=== PATIENT | male | born 1970 | race Caucasian/White ===

== ENCOUNTER 2023-04-06 11:24 | Emergency (ER) | payer BC ==
[~2023-04-06] VITALS: Ht 172.7 cm; Wt 81.6 kg
[2023-04-06 11:40] VITALS: BP_SYST 135; PULSE 72; RESP 18; TEMP 98; O2SAT 97
[2023-04-06 11:57] LABS: BASOPHILS # (AUTO) 0.1 K/uL (0.0-0.2); EOSINOPHILS # (AUTO) 0.2 K/uL (0.0-0.4); EOSINOPHILS % (AUTO) 2.7 % (0.0-4.0); HEMATOCRIT 49.5 % (36-54); HEMOGLOBIN 16.2 g/dL (14.0-18.0); LYMPHOCYTES # (AUTO) 1.8 K/uL (1.0-5.5); LYMPHOCYTES % (AUTO) 20.4 % (20.5-51.5); MEAN CORPUSCULAR HEMOGLOBIN 29 pg (27-31); MEAN CORPUSCULAR HGB CONC 33 % (32-36); MEAN CORPUSCULAR VOLUME 89 fL (79.0-98.0); MONOCYTES # (AUTO) 0.7 K/uL (0.0-1.0); MONOCYTES % (AUTO) 8.6 % (1.7-9.3); NEUTROPHILS # (AUTO) 5.8 K/uL (1.8-7.7); NEUTROPHILS % (AUTO) 67.3 % (40.0-70.0); PLATELET COUNT (AUTO) 257 K/uL (130-430); RED BLOOD CELL COUNT(AUTO) 5.55 MIL/uL (4.2-6.2); RED CELL DISTRIBUTION WIDTH 14.6 % (9.0-15.0); WHITE BLOOD COUNT (AUTO) 8.6 K/uL (4.8-10.8)
[2023-04-06 12:08] LABS: BILIRUBIN,URINE NEGATIVE (NEGATIVE); BLOOD, URINE 1+ (NEGATIVE); CLARITY/URINE CLEAR (CLEAR); COLOR,URINE YELLOW (YELLOW); GLUCOSE,URINE NEGATIVE (NEGATIVE); KETONES,URINE NEGATIVE (NEGATIVE); LEUKOCYTE ESTERASE ,URINE NEGATIVE (NEGATIVE); NITRITE, URINE NEGATIVE (NEGATIVE); PH,URINE 5.5 (5.0-8.0); PROTEIN URINE NEGATIVE (NEGATIVE); UROBILINOGEN,URINE 0.2 (0.2-1.0)
[2023-04-06 12:17] LABS: ALBUMIN 4.1 g/dL (3.4-4.8); CALCIUM 8.8 mg/dL (8.4-11.0); CREATININE 1.07 mg/dL (0.55-1.30); POTASSIUM 4.5 mmol/L (3.5-5.1); TOTAL PROTEIN, SERUM 7.4 g/dL (6.4-8.3)
[2023-04-06 12:18] LABS: BACTERIA,URINE RARE /HPF (None Seen); RBC,URINE 0-3 /HPF (0-3); WBC,URINE NONE SEEN /HPF (0-3)
[2023-04-06] MEDS ORDERED: IBUP-1971 PO (13:27)
[2023-04-06] MEDS ORDERED: AMOX-423 PO (13:27)
[2023-04-06] MEDS ORDERED: AMOXICILLIN/POTASSIUM CLAV 875 MG TABLET PO ONE (13:45)
[2023-04-06] MEDS ORDERED: IBUPROFEN 800 MG TABLET PO ONE (13:45)
[2023-04-06 14:50] VITALS: BP_SYST 135; PULSE 72; RESP 18; TEMP 98; O2SAT 97
== END 2023-04-06 14:19 | disposition home or self-care (01) ==
LOC: SED 11:24
DX: K57.92 Diverticulitis of intestine, part unspecified, without perforation or abscess without bleeding (principal); R10.31 Right lower quadrant pain; Z79.899 Other long term (current) drug therapy
CPT/HCPCS: 36415; 76376; 80053; 81000; 83605; 85025; 99284

== ENCOUNTER 2023-08-24 21:55 | Emergency (ER) | payer BC ==
[~2023-08-24] VITALS: Ht 170.2 cm; Wt 81.6 kg
[~2023-08-24 21:55] MED LIST: AMOX-423 PO; IBUP-1971 PO
[2023-08-24 22:01] VITALS: BP_SYST 134; PULSE 71; RESP 20; TEMP 97.6; O2SAT 98
[2023-08-25 00:40] LABS: ANION GAP 10 (5-15); CARBON DIOXIDE 29 mmol/L (23-29); CHLORIDE 104 mmol/L (98-107); GFR AFRICAN AMERICAN 114 mL/min (>90); GLUCOSE 112 mg/dL (74-106); POTASSIUM 3.3 mmol/L (3.5-5.1); SODIUM SERUM 143 mmol/L (136-145); UREA NITROGEN, BLOOD 15 mg/dL (8-21)
[2023-08-25 00:45] LABS: BASOPHILS % (AUTO) 0.8 % (0.0-2.0); EOSINOPHILS # (AUTO) 0.3 K/uL (0.0-0.4); EOSINOPHILS % (AUTO) 4.8 % (0.0-4.0); HEMATOCRIT 45.3 % (36-54); HEMOGLOBIN 15.3 g/dL (14.0-18.0); LYMPHOCYTES # (AUTO) 1.9 K/uL (1.0-5.5); LYMPHOCYTES % (AUTO) 29.5 % (20.5-51.5); MEAN CORPUSCULAR HEMOGLOBIN 30 pg (27-31); MEAN CORPUSCULAR HGB CONC 34 % (32-36); MEAN CORPUSCULAR VOLUME 89 fL (79.0-98.0); MONOCYTES # (AUTO) 0.6 K/uL (0.0-1.0); MONOCYTES % (AUTO) 8.9 % (1.7-9.3); NEUTROPHILS # (AUTO) 3.5 K/uL (1.8-7.7); PLATELET COUNT (AUTO) 257 K/uL (130-430); RED BLOOD CELL COUNT(AUTO) 5.12 MIL/uL (4.2-6.2); RED CELL DISTRIBUTION WIDTH 14.2 % (9.0-15.0); WHITE BLOOD COUNT (AUTO) 6.3 K/uL (4.8-10.8)
[2023-08-25 00:54] LABS: GFR NON AFRICAN-AMERICAN 94 mL/min (>90)
[2023-08-25 00:56] LABS: ALANINE AMINOTRANSFERASE 39 U/L (12-78); ALBUMIN 3.6 g/dL (3.4-4.8); ASPARTATE AMINOTRANSFERASE 19 U/L (10-37); BILIRUBIN,DIRECT 0.1 mg/dL (0.0-0.3); TOTAL BILIRUBIN 0.5 mg/dL (0.0-1.0); TOTAL PROTEIN, SERUM 6.9 g/dL (6.4-8.3)
[2023-08-25] MEDS ORDERED: CYCL10TA24 PO (01:08)
[2023-08-25 01:24] VITALS: BP_SYST 117; PULSE 79; RESP 16; TEMP 97.3; O2SAT 98
== END 2023-08-25 01:20 | disposition home or self-care (01) ==
LOC: SED 21:55
DX: R07.9 Chest pain, unspecified (principal); R06.02 Shortness of breath; Z79.899 Other long term (current) drug therapy
CPT/HCPCS: 36415; 71045; 80048; 80076; 84484; 85025; 93005; 99285

== ENCOUNTER 2024-01-13 14:50 | Emergency (ER) | payer BC ==
[~2024-01-13] VITALS: Ht 170.2 cm; Wt 81.6 kg
[~2024-01-13 14:50] MED LIST changes: +CYCL10TA24 PO
[2024-01-13 15:08] VITALS: BP_SYST 121; PULSE 80; RESP 18; TEMP 98.3; O2SAT 94
[2024-01-13] MEDS: KETOROLAC TROMETHAMINE 60 MG/2 ML VIAL IM ONE (15:35)
[2024-01-13] MEDS ORDERED: IBUP-1969 PO (15:48)
[2024-01-13 16:28] VITALS: BP_SYST 121; PULSE 80; RESP 18; TEMP 98.3; O2SAT 94
== END 2024-01-13 16:20 | disposition home or self-care (01) ==
LOC: SED 14:50
DX: S43.402A Unspecified sprain of left shoulder joint, initial encounter (principal); Z79.899 Other long term (current) drug therapy; Z79.2 Long term (current) use of antibiotics; X50.0XXA Overexertion from strenuous movement or load, initial encounter; Y93.89 Activity, other specified; Y92.89 Other specified places as the place of occurrence of the external cause; Y99.8 Other external cause status
CPT/HCPCS: 99283; 73030; 96372; J1885